=== PATIENT | male | born 1985 | race Caucasian/White ===

== ENCOUNTER → 2016-08-20 | Outpatient (CLI) | payer OTHER ==
--- NOTE | 2016-08-20 09:51 | CR ---
EXAMINATION: Two-view chest (PA and Lateral views). HISTORY: Cough. FINDINGS: The trachea is midline. The cardiomediastinal silhouette is within normal limits. No pulmonary infil trates, effusions or pneumothorax. Osseous structures appear unremarkable. IMPRESSION: No acute cardiopulmonary process.
== END ==
LOC: MW.CHFP 08:45
PROVIDERS: ATTEND Family Medicine
DX: R05 Cough (principal)
CPT/HCPCS: 71020; 71020-26

== ENCOUNTER 2018-07-03 20:18 | Emergency (ER) | payer BC, OTHER ==
[2018-07-03] MEDS ORDERED: Ketorolac 60 MG/2 ML SDV IM ONE (20:33)
[2018-07-03] MEDS ORDERED: Acetaminophen/HYDROcodone 325-10 MG Tab PO ONE (20:38)
--- NOTE | 2018-07-03 20:38 | EDM.PDOC ---
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 He denies numbness weakness he states he's not had this problem prior. Review of systems: As per history of present illness and below otherwise all systems reviewed and negative. Past medical history: As per history of present illness and as reviewed below otherwise noncontributory. Surgical history: As per history of present illness and as reviewed below otherwise noncontributory. Social history: No reported history of drug or alcohol abuse. Family history: As per history of present illness and as reviewed below otherwise noncontributory. Physical exam: HEENT: Atraumatic, normocephalic, pupils reactive, negative for conjunctival pallor or scleral icterus, mucous membranes moist, throat clear, neck supple, nontender, trachea midline. Lungs: Clear to auscultation, breath sounds equal bilaterally, chest nontender. Heart: S1S2, regular, negative for clicks, rubs, or JVD. Abdomen: Soft, nondistended, nontender. Negative for masses or hepatosplenomegaly. Negative for costovertebral tenderness. Pelvis: Stable nontender. Genitourinary: Deferred. Rectal: Deferred. Extremities: Atraumatic, negative for cords or calf pain. Neurovascular unremarkable. Neuro: Awake, alert, oriented. Cranial nerves II through XII unremarkable. Cerebellum unremarkable. Motor and sensory unremarkable throughout. Exam nonfocal. Back: Patient has paravertebral tenderness to level of the thoracic spine on the left is no vertebral body or point tenderness Diagnostics: X-ray thoracic spine Therapeutics: Toradol 60 mg IM Impression: #1 thoracic myofascial strain Definitive disposition and diagnosis as appropriate pending reevaluation and review of above. mid back Pain Score (Numeric/FACES): 9 - Related Data Allergies Allergy/AdvReac Type Severity Reaction Status Date / Time No Known Allergies Allergy Verified 07/03/18 20:24 Home Meds: Home Meds . [No Known Home Meds] 02/06/15 [History] Past Medical History - Past Health History Medical/Surgical History: Denies Medical/Surgical History HEENT History: Reports: None Cardiovascular History: Reports: None Respiratory History: Reports: None Gastrointestinal History: Reports: None Genitourinary History: Reports: None Musculoskeletal History: Reports: None Neurological History: Reports: None Psychiatric History: Reports: None Endocrine/Metabolic History: Reports: None Hematologic History: Reports: None Immunologic History: Reports: None Oncologic (Cancer) History: Reports: Lymphoma, Other (See Below) 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, last treatment beginning of August Dermatologic History: Reports: None - Past Surgical History Head Surgeries/Procedures: Reports: None HEENT Surgical History: Reports: None Cardiovascular Surgical History: Reports: None Respiratory Surgical History: Reports: None GI Surgical History: Reports: None Male Surgical History: Reports: None Endocrine Surgical History: Reports: None Neurological Surgical History: Reports: None Musculoskeletal Surgical History: Reports: None Oncologic Surgical History: Reports: None Dermatological Surgical History: Reports: None Social & Family History - Family History Family Medical History: Noncontributory Oncologic: Reports: Other (See Below) Other Oncologic Family History: grandfather had 3 types of cancer, Large Cell B Cell (Grandmother) - Tobacco Use Smoking Status *Q: Never Smoker Second Hand Smoke Exposure: No - Caffeine Use Caffeine Use: Reports: Energy Drinks - Recreational Drug Use Recreational Drug Use: No ED ROS GENERAL - Review of Systems Review Of Systems: ROS reveals no pertinent complaints other than HPI. ED EXAM, GENERAL - Physical Exam Exam: See Below (See dictation) Course - Vital Signs Last Recorded V/S: Last Vital Signs Temp 37.5 C 07/03/18 20:23 Pulse 138 H 07/03/18 20:23 Resp 18 07/03/18 20:23 BP 145/67 H 07/03/18 20:23 Pulse Ox 93 L 07/03/18 20:23 - Orders/Labs/Meds Orders: Active Orders 24 hr Category Date Time Status Thoracic Spine 2V [CR] Stat Exams 07/03/18 20:34 Ordered Ketorolac [Toradol] Med 07/03/18 20:33 Once 60 mg IM ONETIME ONE Departure - Departure Time of Disposition: 20:37 Disposition: Home, Self-Care 01 Condition: Good Clinical Impression: Thoracic myofascial strain - Discharge Information Additional Instructions: The following information is given to patients seen in the emergency department who are being discharged to home. This information is to outline your options for follow-up care. We provide all patients seen in our emergency department with a follow-up referral. The need for follow-up, as well as the timing and circumstances, are variable depending upon the specifics of your emergency department visit. If you don't have a primary care physician on staff, we will provide you with a referral. We always advise you to contact your personal physician following an emergency department visit to inform them of the circumstance of the visit and for follow-up with them and/or the need for any referrals to a consulting specialist. The emergency department will also refer you to a specialist when appropriate. This referral assures that you have the opportunity for followup care with a specialist. All of these measure are taken in an effort to provide you with optimal care, which includes your followup. Under all circumstances we always encourage you to contact your private physician who remains a resource for coordinating your care. When calling for followup care, please make the office aware that this follow-up is from your recent emergency room visit. If for any reason you are refused follow-up, please contact the [facility] emergency department at and asked to speak to the emergency department charge nurse. Diclofenac tramadol as prescribed return as needed as discussed - My Orders Last 24 Hours: My Active Orders 07/03/18 20:33 Ketorolac [Toradol] 60 mg IM ONETIME ONE 07/03/18 20:34 Thoracic Spine 2V [CR] Stat - Assessment/Plan Last 24 Hours: My Active Orders 07/03/18 20:33 Ketorolac [Toradol] 60 mg IM ONETIME ONE 07/03/18 20:34 Thoracic Spine 2V [CR] Stat
--- NOTE | 2018-07-03 21:11 | CR ---
Indication: Mid back pain after lifting weights Technique: Frontal and lateral views thoracic spine Comparison: None Findings: Bones: Alignment is normal. There is mild height loss of the lower thoracic vertebral body, possibly T11. This is best seen on the lateral film. Joint spaces: Unremarkable. Soft tissues: Unremarkable. Impression: Mild height loss of a lower thoracic vertebral body. Consider CT for further evaluation if there is pain or tenderness in this region. Dictated by Susi Dill MD @ Jul 03 2018 9:09PM Signed by Dr. Susi Dill @ Jul 03 2018 9:09PM
--- NOTE | 2018-07-03 22:23 | CT ---
INDICATION: Back pain after lifting weights, height loss of lower thoracic vertebral body on radiograph from earlier today TECHNIQUE: CT thoracic spine without contrast. COMPARISON: Thoracic spine radiograph July 03, 2018 at 8:44 p.m. FINDINGS: Vertebral alignment: Alignment is normal. Vertebrae: There are no acute fractures or suspicious bony lesions. Mild height loss of the T10 and T12 vertebrae. Schmorl`s nodes noted at the T7, T10, and T12 levels. Discs and facet joints: Disc spaces and facets are within normal limits. Extraspinal findings: Consolidation in the left lower lobe. IMPRESSION: No acute thoracic spine fracture or subluxation. Left lower lobe pneumonia. Please note that all CT scans at this facility use dose modulation, iterative reconstruction, and/or weight-based dosing when appropriate to reduce radiation dose to as low as reasonably achievable. Dictated by Susi Dill MD @ Jul 03 2018 10:17PM Signed by Dr. Susi Dill @ Jul 03 2018 10:22PM
[2018-07-03 22:47] VITALS: BP 96/50
== END 2018-07-03 22:41 | disposition home or self-care (01) ==
LOC: MW.ED 20:18
DX: S29.012A Strain of muscle and tendon of back wall of thorax, initial encounter (principal); J18.1 Lobar pneumonia, unspecified organism; X50.0XXA Overexertion from strenuous movement or load, initial encounter
CPT/HCPCS: 72070; 72128; 96372; 99284; A9270; J1885